=== PATIENT | male | born 1950 | race Caucasian/White ===

== ENCOUNTER 2016-08-17 02:48 | Inpatient (IN) | payer MEDICARE ==
[2016-08-17] MEDS ORDERED: NITROGLYCERIN SL TABS 0.4 MG TAB SUBLINGUAL STA ×3 (02:57)
[2016-08-17] MEDS ORDERED: ASPIRIN 81 MG CHEW PO STA (02:57)
--- NOTE | 2016-08-17 03:01 | ED ---
General Adult HPI - General Chief complaint: Chest Pain Stated complaint: chest pain Time Seen by Provider: 08/17/16 02:52 Source: patient, RN notes reviewed Mode of arrival: ambulatory Limitations: no limitations - History of Present Illness Initial comments: Patient is a pleasant 65-year-old male presenting to the emergency department complaining of chest discomfort. Discomfort feels like an ache. Discomfort is somewhat severe. Discomfort started a couple hours ago and has been steady. Discomfort is in the chest without radiation. There is some increase of symptoms with deep breaths however denies dyspnea. No nausea or diaphoresis. No history of similar symptoms previously. No leg pain or leg swelling. Patient did have hip replacement done 3 weeks ago. - Related Data Allergies Allergy/AdvReac Type Severity Reaction Status Date / Time Sulfa (Sulfonamide Allergy Rash/Hives Verified 08/17/16 02:53 Antibiotics) nitroglycerin AdvReac Nausea Verified 08/17/16 03:48 Review of Systems ROS Statement: Those systems with pertinent positive or pertinent negative responses have been documented in the HPI. ROS Other: All systems not noted in ROS Statement are negative. Constitutional: Denies: fever Eyes: Denies: eye pain ENT: Denies: ear pain Respiratory: Denies: cough, dyspnea Cardiovascular: Reports: chest pain Endocrine: Reports: fatigue Gastrointestinal: Denies: abdominal pain Genitourinary: Denies: dysuria Musculoskeletal: Denies: back pain Skin: Denies: rash Neurological: Denies: weakness Past Medical History Past Medical History: No Reported History History of Any Multi-Drug Resistant Organisms: None Reported Past Surgical History: Joint Replacement Additional Past Surgical History / Comment(s): left hip replacement july/2016. Past Psychological History: No Psychological Hx Reported Smoking Status: Never smoker Past Alcohol Use History: None Reported Past Drug Use History: None Reported General Exam Limitations: no limitations General appearance: alert, in no apparent distress Head exam: Present: atraumatic Eye exam: Present: normal appearance, PERRL ENT exam: Present: normal oropharynx Neck exam: Present: normal inspection Respiratory exam: Present: normal lung sounds bilaterally. Absent: chest wall tenderness Cardiovascular Exam: Present: regular rate, normal rhythm Expanded Peripheral pulses: 2+: Radial (R), Radial (L), Posterior Tibialis (R), Posterior Tibialis (L) GI/Abdominal exam: Present: soft. Absent: tenderness Extremities exam: Present: normal inspection. Absent: pedal edema, calf tenderness Neurological exam: Present: alert Psychiatric exam: Present: normal affect, normal mood Skin exam: Present: normal color Course Vital Signs 08/17/16 08/17/16 08/17/16 02:53 03:15 03:26 Temperature 98 F Pulse Rate 90 103 H 78 Respiratory 16 16 18 Rate Blood Pressure 140/70 96/53 78/57 O2 Sat by Pulse 99 100 99 Oximetry 08/17/16 08/17/16 08/17/16 03:28 03:36 03:47 Temperature Pulse Rate 80 74 78 Respiratory 16 16 16 Rate Blood Pressure 93/55 106/57 104/57 O2 Sat by Pulse 100 100 100 Oximetry 08/17/16 04:25 Temperature Pulse Rate 74 Respiratory 16 Rate Blood Pressure 105/60 O2 Sat by Pulse 100 Oximetry EKG Findings - EKG Comments: EKG Findings:: Normal sinus rhythm 94. Normal intervals. Normal axis. Normal QRS. Normal ST-T. Medical Decision Making - Medical Decision Making Patient reevaluated and resting comfortably in bed. Patient is updated regarding results and plan. Dr. Zhu has been paged for admission for Dr. Diaz. Patient previously has seen Dr. Pizarro will be placed on consult. IV heparin will be started. - Lab Data Result diagrams: 08/17/16 03:05 08/17/16 03:05 Lab Results 08/17/16 08/17/16 08/17/16 Range/Units 03:05 03:05 03:05 WBC 7.9 (3.8-10.6) k/uL RBC 4.04 L (4.30-5.90) m/uL Hgb 12.4 L (13.0-17.5) gm/dL Hct 38.8 L (39.0-53.0) % MCV 96.1 (80.0-100.0) fL MCH 30.6 (25.0-35.0) pg MCHC 31.9 (31.0-37.0) g/dL RDW 12.5 (11.5-15.5) % Plt Count 358 (150-450) k/uL Neutrophils % 75 % Lymphocytes % 15 % Monocytes % 8 % Eosinophils % 1 % Basophils % 0 % Neutrophils # 5.9 (1.3-7.7) k/uL Lymphocytes # 1.2 (1.0-4.8) k/uL Monocytes # 0.7 (0-1.0) k/uL Eosinophils # 0.1 (0-0.7) k/uL Basophils # 0.0 (0-0.2) k/uL PT (9.0-12.0) sec INR (<1.1) APTT (22.0-30.0) sec D-Dimer (<0.60) mg/L FEU Sodium 139 (137-145) mmol/L Potassium 4.3 (3.5-5.1) mmol/L Chloride 107 (98-107) mmol/L Carbon Dioxide 24 (22-30) mmol/L Anion Gap 8 mmol/L BUN 14 (9-20) mg/dL Creatinine 0.90 (0.66-1.25) mg/dL Est GFR (MDRD) Af Amer >60 (>60 ml/min/1.73 sqM) Est GFR (MDRD) Non-Af >60 (>60 ml/min/1.73 sqM) Glucose 102 H (74-99) mg/dL Calcium 9.1 (8.4-10.2) mg/dL Magnesium 2.1 (1.6-2.3) mg/dL Total Bilirubin 0.8 (0.2-1.3) mg/dL AST 26 (17-59) U/L ALT 34 (21-72) U/L Alkaline Phosphatase 89 (38-126) U/L Total Creatine Kinase 84 (55-170) U/L CK-MB (CK-2) 0.5 (0.0-2.4) ng/mL CK-MB (CK-2) Rel Index 0.6 Troponin I 0.021 (0.000-0.034) ng/mL Total Protein 6.8 (6.3-8.2) g/dL Albumin 3.8 (3.5-5.0) g/dL 08/17/16 Range/Units 03:05 WBC (3.8-10.6) k/uL RBC (4.30-5.90) m/uL Hgb (13.0-17.5) gm/dL Hct (39.0-53.0) % MCV (80.0-100.0) fL MCH (25.0-35.0) pg MCHC (31.0-37.0) g/dL RDW (11.5-15.5) % Plt Count (150-450) k/uL Neutrophils % % Lymphocytes % % Monocytes % % Eosinophils % % Basophils % % Neutrophils # (1.3-7.7) k/uL Lymphocytes # (1.0-4.8) k/uL Monocytes # (0-1.0) k/uL Eosinophils # (0-0.7) k/uL Basophils # (0-0.2) k/uL PT 10.5 (9.0-12.0) sec INR 1.0 (<1.1) APTT 26.4 (22.0-30.0) sec D-Dimer 11.00 H (<0.60) mg/L FEU Sodium (137-145) mmol/L Potassium (3.5-5.1) mmol/L Chloride (98-107) mmol/L Carbon Dioxide (22-30) mmol/L Anion Gap mmol/L BUN (9-20) mg/dL Creatinine (0.66-1.25) mg/dL Est GFR (MDRD) Af Amer (>60 ml/min/1.73 sqM) Est GFR (MDRD) Non-Af (>60 ml/min/1.73 sqM) Glucose (74-99) mg/dL Calcium (8.4-10.2) mg/dL Magnesium (1.6-2.3) mg/dL Total Bilirubin (0.2-1.3) mg/dL AST (17-59) U/L ALT (21-72) U/L Alkaline Phosphatase (38-126) U/L Total Creatine Kinase (55-170) U/L CK-MB (CK-2) (0.0-2.4) ng/mL CK-MB (CK-2) Rel Index Troponin I (0.000-0.034) ng/mL Total Protein (6.3-8.2) g/dL Albumin (3.5-5.0) g/dL - Radiology Data Radiology results: image reviewed (Chest x-ray shows a referral left airspace disease. Computed tomography scan of the chest positive for bilateral pulmonary embolism. Possible pulmonary infarct versus pneumonia.) Critical Care Time Critical Care Time: Yes Total Critical Care Time: 33 Disposition Clinical Impression: Pulmonary embolism Disposition: ADMITTED IP TO THIS HOSP Condition: Serious Referrals: Ronaldo Diaz MD [Primary Care Provider] - 1-2 days Decision Time: 04:33
[2016-08-17 03:17] LABS: Basophils % (A) 0 %; CH 30.8; CHCM 32.2; Eosinophils # (A) 0.1 k/uL (0-0.7); Eosinophils % (A) 1 %; HCT 38.8 % (39.0-53.0); HDW 2.41; HGB 12.4 gm/dL (13.0-17.5); Luc # (Auto) 0.12; Luc % (Auto) 2; Lymphocytes # (A) 1.2 k/uL (1.0-4.8); Lymphocytes % (A) 15 %; MCH 30.6 pg (25.0-35.0); MCHC 31.9 g/dL (31.0-37.0); MCV 96.1 fL (80.0-100.0); Mean Platelet Volume 7.2; Monocytes # (A) 0.7 k/uL (0-1.0); Monocytes % (A) 8 %; Neutrophils # (A) 5.9 k/uL (1.3-7.7); Neutrophils % (A) 75 %; RBC 4.04 m/uL (4.30-5.90); RDW 12.5 % (11.5-15.5); WBC 7.9 k/uL (3.8-10.6); WBC (Perox) 7.85
[2016-08-17 03:27] LABS: ALT 34 U/L (21-72); AST 26 U/L (17-59); Alkaline Phosphatase 89 U/L (38-126); Anion Gap 8 mmol/L; Blood Urea Nitrogen 14 mg/dL (9-20); Calcium 9.1 mg/dL (8.4-10.2); Carbon Dioxide 24 mmol/L (22-30); Chloride 107 mmol/L (98-107); Glucose 102 mg/dL (74-99); Magnesium 2.1 mg/dL (1.6-2.3); Non-African American GFR(MDRD) >60 (>60 ml/min/1.73 sqM); Potassium 4.3 mmol/L (3.5-5.1); Sodium 139 mmol/L (137-145); Total Bilirubin 0.8 mg/dL (0.2-1.3); Total Protein 6.8 g/dL (6.3-8.2)
[2016-08-17] MEDS ORDERED: SODIUM CHLORIDE 0.9% 500 ML IV ONE (03:27)
[2016-08-17 03:37] LABS: Partial Thromboplastin Time 26.4 sec (22.0-30.0); Prothrombin Time 10.5 sec (9.0-12.0)
[2016-08-17 03:52] LABS: Creatine Kinase MB 0.5 ng/mL (0.0-2.4); Troponin I 0.021 ng/mL (0.000-0.034)
[2016-08-17] MEDS ORDERED: RX INFO: IV CONTRAST WAS GIVEN 1 EACH MISC MISCELLANE PRN (03:54)
[2016-08-17] MEDS ORDERED: HEPARIN SODIUM,PORCINE 10,000 UNIT/ML 1 ML VIAL IV ONE (04:27)
[2016-08-17] MEDS ORDERED: HEPARIN SODIUM,PORCINE 5,000 UNIT/ML 1 ML VIAL IV PRN (04:27)
--- NOTE | 2016-08-17 04:30 | XR ---
EXAM: XR Chest, 2 Views CLINICAL HISTORY: Reason: Chest Pain TECHNIQUE: Frontal and lateral views of the chest. COMPARISON: No relevant prior studies available. FINDINGS: Please see impression. IMPRESSION: 1. Heterogeneous airspace disease at the peripheral aspect of the left lower lobe. Consider pneumonia in the right clinical setting. 2. No other consolidation, pleural effusion or pneumothorax. 3. No hilar or cardiomediastinal enlargement. Trachea is normal. [employer] 08/17/16 04:26 Call Doctor Regarding Above results, called Dr. Mcdonald on 08/17 04:25 (-04:00)
[2016-08-17] MEDS ORDERED: MORPHINE SULFATE 4 MG/ML SYRINGE IV PRN (04:33)
[2016-08-17] MEDS: HEPARIN SODIUM,PORCINE/D5W PMX 25,000 UNIT in DEXTROSE/WATER 1 500ML.BAG IV SCH (04:33)
[2016-08-17] MEDS ORDERED: NALOXONE 0.4 MG/ML 1 ML VIAL IV PRN (04:33)
[2016-08-17 05:30] VITALS: BMI 24.3
--- NOTE | 2016-08-17 05:49 | CT ---
EXAM: CT Chest With Intravenous Contrast CLINICAL HISTORY: Reason: pe protocol TECHNIQUE: Axial computed tomography images of the chest with intravenous contrast during the arterial phase of enhancement. Maximum intensity projection coronal and sagittal reformats submitted for review. CTDI is 63.60 mGy and DLP is 292.10 mGy-cm. This CT exam was performed using one or more of the following dose reduction techniques: automated exposure control, adjustment of the mA and/or kV according to patient size, and/or use of iterative reconstruction technique. COMPARISON: No relevant prior studies available. FINDINGS: Pulmonary arteries: Positive for PE involving segmental and subsegmental branches to the upper lobes and both lower lobes. No saddle embolus. No aortic aneurysm or dissection. Aorta: No acute findings. No thoracic aortic aneurysm. Lungs: Airspace disease of the left greater than right lower lobes concerning for pulmonary infarct. No mass. Pleural space: Unremarkable. No significant effusion. No pneumothorax. Heart: Unremarkable. No cardiomegaly. No significant pericardial effusion. No evidence of RV dysfunction. Bones/joints: No acute fracture. No dislocation. Soft tissues: Unremarkable. Lymph nodes: Unremarkable. No enlarged lymph nodes. IMPRESSION: Bilateral multilobar segmental and substernal PE with airspace disease potentially representing pulmonary infarcts at the lower lobes. [employer] 08/17/16 05:47 Call Doctor Regarding Above results, called Dr. Mcdonald on 08/17 04:25 (-04:00)
[2016-08-17] MEDS: FAMOTIDINE 20 MG TAB PO SCH ×2 (09:15→19:56)
[2016-08-17] MEDS: HYDROcodone/APAP 7.5-325MG 1 EACH TAB PO PRN ×2 (12:42→20:10)
--- NOTE | 2016-08-17 12:43 | P.CNPUL ---
History of Present Illness Consult date: 08/17/16 Reason for consult: pulmonary embolism Chief complaint: Shortness of breath History of present illness: This is a 65-year-old male patient, healthy, with essentially a negative past medical history with the exception of chronic arthritis, who came into the hospital because of worsening shortness of breath of 2 days' duration. Earlier this morning he started also having some pain, pleuritic in nature more so in the left lung base. No cough. No sputum production. No hemoptysis. Noted the patient had undergone a left hip replacement at [facility] and medical and his postoperative course has been relatively uneventful. The patient was given aspirin perioperatively and he was ultimately discharged home. He tells me that he was quite active and ambulatory postop. The patient has some increased swelling along the left upper hip area, Yet he denies having any calf pain or swelling. He had a CT angios the chest in the emergency department that showed pulmonary embolism involving the segmental and subsegmental branches of the upper lobes and lower lobes more so on the left lung base. There is also air space disease in the lung bases more so on the left compared to the right. Based on this, the patient was started on IV heparin. He is currently on 2 L of oxygen nasal cannula and his pulse ox is above 90%. No tachycardia. No hypotension. Urine output is adequate. No bleeding complications while on heparin. No drop in his hemoglobin. He has been stable and his pain is subsiding. No dyspnea at rest. This is the patient 's first event and he denies having any previous history of DVT or pulmonary embolism and this does not run in his family. No 69 malignancy. No history of any hypercoagulable states. No history of any trauma. Surgical wound site over the left hip area is dry clean and intact. Review of Systems All systems: negative Constitutional: Denies chills, Denies fever Eyes: denies blurred vision, denies pain Ears, nose, mouth and throat: Denies headache, Denies sore throat Cardiovascular: Denies chest pain, Denies shortness of breath Respiratory: Denies cough Gastrointestinal: Denies abdominal pain, Denies diarrhea, Denies nausea, Denies vomiting Musculoskeletal: Denies myalgias Integumentary: Denies pruritus, Denies rash Neurological: Denies numbness, Denies weakness Psychiatric: Denies anxiety, Denies depression Endocrine: Denies fatigue, Denies weight change Past Medical History Past Medical History: No Reported History History of Any Multi-Drug Resistant Organisms: None Reported Past Surgical History: Joint Replacement Additional Past Surgical History / Comment(s): left hip replacement july/2016, right knee surgery for a torn ligament in 1970 Past Psychological History: No Psychological Hx Reported Smoking Status: Never smoker Past Alcohol Use History: None Reported Past Drug Use History: None Reported - Past Family History Mother Family Medical History: Cancer Medications and Allergies Home Medications Medication Instructions Recorded Confirmed Type Aspirin 325 mg PO BID 08/17/16 08/17/16 History Allergies Allergy/AdvReac Type Severity Reaction Status Date / Time Sulfa (Sulfonamide Allergy Rash/Hives Verified 08/17/16 08:32 Antibiotics) nitroglycerin AdvReac Nausea Verified 08/17/16 08:32 Physical Exam Vitals: Vital Signs Temp Pulse Pulse Resp BP BP BP 08/17/16 12:00 99.2 F 79 16 115/70 08/17/16 09:08 99.2 F 79 16 112/65 08/17/16 05:44 98.2 F 73 18 113/65 08/17/16 05:01 98.2 F 73 18 113/65 08/17/16 04:51 75 16 104/66 08/17/16 04:25 74 16 105/60 08/17/16 03:47 78 16 104/57 08/17/16 03:36 74 16 106/57 08/17/16 03:28 80 16 93/55 08/17/16 03:26 78 18 78/57 08/17/16 03:15 103 H 16 96/53 08/17/16 02:53 98 F 90 16 140/70 Pulse Ox 08/17/16 12:00 96 08/17/16 09:08 96 08/17/16 05:44 98 08/17/16 05:01 98 08/17/16 04:51 100 08/17/16 04:25 100 08/17/16 03:47 100 08/17/16 03:36 100 08/17/16 03:28 100 08/17/16 03:26 99 08/17/16 03:15 100 08/17/16 02:53 99 Intake and Output 08/16/16 08/17/16 08/17/16 22:59 06:59 14:59 Intake Total 624 Output Total 925 Balance -301 Intake: IV 384 Heparin Sodium,Porcine/ 224 D5w Pmx 25,000 unit In Dextrose/Water 1 500ml. bag @ 18 UNITS/KG/HR 27. 75 mls/hr IV .Q18H2M [facility] Rx#:[id number] Sodium Chloride 0.9% 1, 160 000 ml @ 20 mls/hr IV . Q24H [facility] Rx#:[id number] Oral 240 Output: Urine 925 Other: Voiding Method Urinal Urinal Weight 77.111 kg Results - Laboratory Findings CBC and BMP: 08/17/16 03:05 08/17/16 03:05 PT/INR, D-dimer PT 10.5 sec (9.0-12.0) 08/17/16 03:05 INR 1.0 (<1.1) 08/17/16 03:05 D-Dimer 11.00 mg/L FEU (<0.60) H 08/17/16 03:05 Abnormal lab findings: Abnormal Labs 08/17/16 08/17/16 08/17/16 03:05 03:05 03:05 RBC 4.04 L Hgb 12.4 L Hct 38.8 L APTT D-Dimer 11.00 H Glucose 102 H 08/17/16 10:30 RBC Hgb Hct APTT 66.8 H D-Dimer Glucose - Diagnostic Findings CT scan - chest: image reviewed Assessment and Plan Plan: Assessment 1 acute provoked bilateral pulmonary embolism involving the segmental and subsegmental branches of the lower lobes and upper lobes more so on the left lower lobe pulmonary artery branches. This is a provoked event under the patient undergone a left hip surgery approximately 3 weeks ago. Doubt any other risk factors. The patient is hemodynamic is stable on IV heparin. 2 suspected left lower extremity DVT, awaiting Dopplers 3 left hip replacement, postop 4 shortness of breath and pleuritic chest pain secondary to above Plan Continued IV heparin. We will obtain Doppler of the lower extremity looking for any DVT. Obtain an echocardiogram to assess the patient's pulmonary artery pressures and LV function. The patient is hemodynamically stable. He is actually taking well. We'll provide an incentive spirometer. There is some atelectatic and decided changes in the lung bases bilaterally which is probably related to pulmonary embolism and this is not suggestive of any pneumonia. He' ll be given an incentive spirometer. He'll be given [place] for pain control 7.5/ 325 every 6-8 hours and the IV morphine will be discontinued. He will be ultimately discharged home on Xarelto. The insurance authorization will be obtained and if approved the patient will be started on Xarelto starter pack as of tomorrow. Early mobility. Diagnosis was discussed. We'll continue to follow.
--- NOTE | 2016-08-17 14:38 | US ---
EXAMINATION TYPE: US venous doppler duplex LE BI DATE OF EXAM: 08/17/2016 1:46 PM COMPARISON: NONE CLINICAL HISTORY: rule out DVT, pulmonary embolism. SIDE PERFORMED: Bilateral TECHNIQUE: The lower extremity deep venous system is examined utilizing real time linear array sonog anna with graded compression, doppler sonography and color-flow sonography. VESSELS IMAGED: External Iliac Vein (EIV) Common Femoral Vein Deep Femoral Vein Greater Saphenous Vein * Femoral Vein Popliteal Vein Small Saphenous Vein * Proximal Calf Veins (* superficial vessels) Grayscale, color doppler, spectral doppler imaging performed of the deep veins of the lower extremiti es. There is normal flow, compressibility, vascular waveforms bilaterally. Right Leg: Negative for DVT Left Leg: Negative for DVT IMPRESSION: No evidence for DVT.
--- NOTE | 2016-08-17 14:45 | P.HPIM ---
History of Present Illness H&P Date: 08/17/16 Chief Complaint: Bilateral PE This is a 65-year-old male one of Dr. Diaz with a previous medical history significant for osteoarthritis for which she underwent a left total hip arthroplasty that was done via the anterior approach by Dr. Marc Clarke at [facility] and that was in 07/28/2016, that went an eventful, patient was doing fine up until about a week ago when he developed to have a significant exhaustion and fatigue over the last few days, yesterday he was sitting up in chair and suddenly developed to have left-sided chest pain associated with increased shortness breath patient ended up coming to the ER at [facility] had a computed tomography scan of the chest that showed bilateral subsegmental pulmonary emboli was started on heparin drip and he was admitted to the hospital, pulmonary consultation was obtained from Dr. Thkakar. Review of Systems Constitutional: Reports fatigue, Denies anorexia, Denies chronic headaches, Denies lethargy, Denies malaise, Denies weight gain, Denies weight loss Eyes: denies blurred vision, denies bulging eye, denies decreased vision, denies diplopia Ears: deny: decreased hearing Ears, nose, mouth and throat: Denies dysphagia, Denies neck lump, Denies sore throat, Denies vertigo Cardiovascular: Reports chest pain, Reports decreased exercise tolerance, Reports dyspnea on exertion, Reports shortness of breath, Denies irregular heart beat, Denies rapid heart beat, Denies syncope Respiratory: Reports dyspnea, Reports pleurisy, Denies congestion, Denies cough with sputum, Denies home oxygen, Denies sleep apnea, Denies snoring, Denies wheezing Gastrointestinal: Denies abdominal pain, Denies bloating, Denies BRBPR, Denies early satiety, Denies heartburn, Denies melena, Denies nausea, Denies vomiting Genitourinary: Denies discharge, Denies dysuria, Denies nocturia, Denies polyuria Musculoskeletal: Denies myalgias Musculoskeletal: left: hip stiffness, absent: ankle pain, ankle stiffness, ankle swelling, elbow pain, elbow stiffness, elbow swelling, foot pain, foot stiffness, foot swelling, hand pain, hand stiffness, hand swelling, hip swelling , knee pain, knee stiffness, knee swelling, shoulder pain, shoulder stiffness, shoulder swelling, wrist pain, wrist stiffness, wrist swelling Integumentary: Denies pruritus, Denies rash Neurological: Denies numbness, Denies weakness Psychiatric: Denies anxiety, Denies depression Endocrine: Denies fatigue, Denies weight change Past Medical History Past Medical History: Osteoarthritis (OA) History of Any Multi-Drug Resistant Organisms: None Reported Past Surgical History: Adenoidectomy, Joint Replacement, Orthopedic Surgery ( Right arthroscopic knee with torn cartilage.), Tonsillectomy Additional Past Surgical History / Comment(s): left hip replacement july/2016, last colonoscopy was 2014 normal Past Psychological History: No Psychological Hx Reported Smoking Status: Never smoker Past Alcohol Use History: Occasional Past Drug Use History: None Reported - Past Family History Mother Family Medical History: Cancer (Mother at age of 82 from cerebral hemorrhage also a survivor of colon cancer) Father Family Medical History: Neurologic Disorder (Father at the age of 92 from intracranial hemorrhage) Brother(s) Family Medical History: No Reported History (Patient had 2 brothers one this is from correction of the other one is living and well) Daughter(s) Family Medical History: No Reported History (Patient has one daughter no major medical problems) Son(s) Family Medical History: No Reported History (Patient has a son with no major medical problems) Medications and Allergies Home Medications Medication Instructions Recorded Confirmed Type Aspirin 325 mg PO BID 08/17/16 08/17/16 History Allergies Allergy/AdvReac Type Severity Reaction Status Date / Time Sulfa (Sulfonamide Allergy Rash/Hives Verified 08/17/16 08:32 Antibiotics) nitroglycerin AdvReac Nausea Verified 08/17/16 08:32 Physical Exam Vitals: Vital Signs Temp Pulse Pulse Resp BP BP BP 08/17/16 09:08 99.2 F 79 16 112/65 08/17/16 05:44 98.2 F 73 18 113/65 08/17/16 05:01 98.2 F 73 18 113/65 08/17/16 04:51 75 16 104/66 08/17/16 04:25 74 16 105/60 08/17/16 03:47 78 16 104/57 08/17/16 03:36 74 16 106/57 08/17/16 03:28 80 16 93/55 08/17/16 03:26 78 18 78/57 08/17/16 03:15 103 H 16 96/53 08/17/16 02:53 98 F 90 16 140/70 Pulse Ox 08/17/16 09:08 96 08/17/16 05:44 98 08/17/16 05:01 98 08/17/16 04:51 100 08/17/16 04:25 100 08/17/16 03:47 100 08/17/16 03:36 100 08/17/16 03:28 100 08/17/16 03:26 99 08/17/16 03:15 100 08/17/16 02:53 99 Intake and Output 08/16/16 08/17/16 08/17/16 22:59 06:59 14:59 Intake Total 624 Output Total 925 Balance -301 Intake: IV 384 Heparin Sodium,Porcine/ 224 D5w Pmx 25,000 unit In Dextrose/Water 1 500ml. bag @ 18 UNITS/KG/HR 27. 75 mls/hr IV .Q18H2M [facility] Rx#:[id number] Sodium Chloride 0.9% 1, 160 000 ml @ 20 mls/hr IV . Q24H [facility] Rx#:[id number] Oral 240 Output: Urine 925 Other: Voiding Method Urinal Weight 77.111 kg - Constitutional General appearance: mild distress - EENT Eyes: anicteric sclerae, EOMI, PERRLA, no ptosis, no scleral icterus, normal appearance ENT: hearing grossly normal, NA/AT, normal oropharynx, no thrush Ears: bilateral: normal - Neck Neck: no lymphadenopathy, normal ROM, no rigidity, no stridor, no thyromegaly Carotids: bilateral: upstroke normal Thyroid: bilateral: normal size - Respiratory Respiratory: bilateral: diminished, negative: dullness, rales, rhonchi, wheezing , prolonged expiration - Cardiovascular Rhythm: regular Heart sounds: normal: S1, S2 Abnormal Heart Sounds: no systolic murmur, no S3 Gallop, no S4 Gallop, no click - Gastrointestinal General gastrointestinal: normal bowel sounds, soft, no splenomegaly, no tenderness, no umbilical hernia - Integumentary Integumentary: normal, normal turgor - Neurologic Neurologic: CNII-XII intact - Musculoskeletal Musculoskeletal: strength equal bilaterally - Psychiatric Psychiatric: A&O x's 3, appropriate affect, intact judgment & insight Results CBC & Chem 7: 06/26/17 03:05 08/17/16 03:05 Labs: Abnormal Lab Results - Last 24 Hours (Table) 08/17/16 08/17/16 08/17/16 Range/Units 03:05 03:05 03:05 RBC 4.04 L (4.30-5.90) m/uL Hgb 12.4 L (13.0-17.5) gm/dL Hct 38.8 L (39.0-53.0) % D-Dimer 11.00 H (<0.60) mg/L FEU Glucose 102 H (74-99) mg/dL Thrombosis Risk Factor Assmnt - DVT/VTE Prophylaxis DVT/VTE Prophylaxis: Pharmacologic Prophylaxis ordered - Choose All That Apply Each Risk Factor Represents 2 Points: Age 61-74 years Each Risk Factor Represents 5 Points: Hip, pelvis, or leg fracture (< 1 month) Thrombosis Risk Factor Assessment Total Risk Factor Score: 7 Thrombosis Risk Factor Assessment Level: High Risk Assessment and Plan Plan: Assessment and plan: 1. Bilateral subsegmental pulmonary emboli provoked by recent left total hip arthroplasty via anterior approach. Continue heparin drip for the next 24 hours , transition the patient to Xarelto 50 mg orally twice every day for the next 21 days then 20 mg orally once every day for the next 6 months, patient will have a venous Doppler of both lower extremity for evaluation of DVT, patient was seen and evaluated by pulmonary medicine, incentive spirometer at the bedside. 2. Osteoarthritis status post left total hip arthroplasty. Continue hydrocodone 5/325 mg 1 tablet every 6 hours as needed. 3. DVT prophylaxis. Currently on heparin drip. 4. Increase activity. 5. Home within the next 24-48 hours.
[2016-08-17] MEDS: SODIUM CHLORIDE 0.9% 1,000 ML IV SCH (15:28)
[2016-08-18] MEDS: HEPARIN SODIUM,PORCINE/D5W PMX 25,000 UNIT in DEXTROSE/WATER 1 500ML.BAG IV SCH (00:37)
[2016-08-18] MEDS: HYDROcodone/APAP 7.5-325MG 1 EACH TAB PO PRN (01:58)
[2016-08-18] MEDS: SODIUM CHLORIDE 0.9% 1,000 ML IV SCH (06:12)
[2016-08-18 06:32] LABS: Basophils % (A) 0 %; CH 30.4; CHCM 31.6; Eosinophils % (A) 1 %; HCT 33.2 % (39.0-53.0); HDW 2.46; HGB 10.1 gm/dL (13.0-17.5); Hypochromasia Slight; Luc % (Auto) 2; Lymphocytes # (A) 1.1 k/uL (1.0-4.8); Lymphocytes % (A) 18 %; MCH 29.5 pg (25.0-35.0); MCHC 30.5 g/dL (31.0-37.0); MCV 96.6 fL (80.0-100.0); Mean Platelet Volume 6.7; Monocytes # (A) 0.6 k/uL (0-1.0); Monocytes % (A) 10 %; Neutrophils # (A) 4.2 k/uL (1.3-7.7); Neutrophils % (A) 69 %; RBC 3.43 m/uL (4.30-5.90); RDW 12.4 % (11.5-15.5); WBC 6.1 k/uL (3.8-10.6); WBC (Perox) 6.86
[2016-08-18 07:18] LABS: ALT 30 U/L (21-72); AST 22 U/L (17-59); Alkaline Phosphatase 67 U/L (38-126); Anion Gap 7 mmol/L; Blood Urea Nitrogen 9 mg/dL (9-20); Calcium 8.6 mg/dL (8.4-10.2); Carbon Dioxide 27 mmol/L (22-30); Chloride 104 mmol/L (98-107); Glucose 101 mg/dL (74-99); Non-African American GFR(MDRD) >60 (>60 ml/min/1.73 sqM); Potassium 4.6 mmol/L (3.5-5.1); Sodium 138 mmol/L (137-145); Total Bilirubin 0.5 mg/dL (0.2-1.3); Total Protein 5.5 g/dL (6.3-8.2)
[2016-08-18] MEDS: FAMOTIDINE 20 MG TAB PO SCH (08:13)
[2016-08-18] MEDS ORDERED: RIVAROXABAN 15 MG TAB PO SCH (09:00)
[2016-08-18 09:51] VITALS: RESP 18
--- NOTE | 2016-08-18 09:52 | ECHOF ---
Referral Reason:PE MEASUREMENTS -------- HEIGHT: 182.9 cm WEIGHT: 78.0 kg BP: RVIDd: 3.9 cm (< 3.3) IVSd: 0.7 cm (0.6 - 1.1) LVIDd: 4.6 cm (3.9 - 5.3) LVPWd: 0.9 cm (0.6 - 1.1) IVSs: 1.4 cm LVIDs: 2.0 cm LVPWs: 1.7 cm Ao Diam: 3.4 cm (2.0 - 3.7) AV Cusp: 2.3 cm (1.5 - 2.6) LA Diam: 3.0 cm (2.7 - 3.8) MV EXCURSION: 22.560 mm (> 18.000) MV EF SLOPE: 91 mm/s (70 - 150) EPSS: 0.2 cm MV E Yamil: 0.86 m/s MV DecT: 256 ms MV A Yamil: 0.77 m/s MV E/A Ratio: 1.12 RAP: 15.00 mmHg RVSP: 24.10 mmHg FINDINGS -------- Sinus rhythm. This was a technically good study. Left ventricular wall thickness is normal. Overall left ventricular systolic function is normal with, an EF between 55 - 60 %. The right ventricle is mild to moderately enlarged. The left atrium is normal in size. The right atrium is normal in size. The aortic valve is trileaflet, and appears structurally normal. No aortic stenosis or regurgitation. Mild mitral regurgitation is present. Mild tricuspid regurgitation present. The right ventricular systolic pressure, as measured by Doppler, is 24.10mmHg. Pulmonic valve appears structurally normal. The aortic root size is normal. The inferior vena cava is mildly dilated. The pericardium is normal. CONCLUSIONS -------- 1. Sinus rhythm. 2. Mild tricuspid regurgitation present. 3. The right ventricular systolic pressure, as measured by Doppler, is 24.10mmHg. 4. Pulmonic valve appears structurally normal. 5. The aortic root size is normal. 6. The inferior vena cava is mildly dilated. 7. The pericardium is normal. 8. This was a technically good study. 9. Left ventricular wall thickness is normal. 10. Overall left ventricular systolic function is normal with, an EF between 55 - 60 %. 11. The right ventricle is mild to moderately enlarged. 12. The left atrium is normal in size. 13. The right atrium is normal in size. 14. The aortic valve is trileaflet, and appears structurally normal. No aortic stenosis or regurgitation. 15. Mild mitral regurgitation is present. NANOELECTRONICS ENGINEER: Ruthann Rodriguez RDCS
--- NOTE | 2016-08-18 11:22 | P.PN ---
Subjective This is a 65-year-old male patient, healthy, with essentially a negative past medical history with the exception of chronic arthritis, who came into the hospital because of worsening shortness of breath of 2 days' duration. Earlier this morning he started also having some pain, pleuritic in nature more so in the left lung base. No cough. No sputum production. No hemoptysis. Noted the patient had undergone a left hip replacement at [facility] and medical and his postoperative course has been relatively uneventful. The patient was given aspirin perioperatively and he was ultimately discharged home. He tells me that he was quite active and ambulatory postop. The patient has some increased swelling along the left upper hip area, Yet he denies having any calf pain or swelling. He had a CT angios the chest in the emergency department that showed pulmonary embolism involving the segmental and subsegmental branches of the upper lobes and lower lobes more so on the left lung base. There is also air space disease in the lung bases more so on the left compared to the right. Based on this, the patient was started on IV heparin. He is currently on 2 L of oxygen nasal cannula and his pulse ox is above 90%. No tachycardia. No hypotension. Urine output is adequate. No bleeding complications while on heparin. No drop in his hemoglobin. He has been stable and his pain is subsiding. No dyspnea at rest. This is the patient 's first event and he denies having any previous history of DVT or pulmonary embolism and this does not run in his family. No 69 malignancy. No history of any hypercoagulable states. No history of any trauma. Surgical wound site over the left hip area is dry clean and intact. On today's evaluation of 08/18/2016 the patient is looking well. The patient has no specific complaints. No shortness of breath. No chest pain. He is on IV heparin. He'll be switched to Xarelto. Doppler of the lower extremities has been negative. The echocardiogram showed a normal ejection fraction of 55- 60%. No evidence of any significant pulmonary hypertension. Mild mitral regurgitation was seen. Objective - Vital Signs Vital signs: Vital Signs Temp 97.6 F 08/18/16 08:00 Pulse 82 08/18/16 08:00 Resp 18 08/18/16 08:00 BP 111/57 08/18/16 08:00 Pulse Ox 97 08/18/16 08:00 Intake & Output 08/17/16 08/18/16 08/18/16 18:59 06:59 18:59 Intake Total 1308 346.5 500 Output Total 1225 475 Balance 83 -128.5 500 Weight 77.111 kg 77.8 kg Intake: IV 768 346.5 Heparin Sodium,Porcine/ 448 166.5 D5w Pmx 25,000 unit In Dextrose/Water 1 500ml. bag @ 18 UNITS/KG/HR 27. 75 mls/hr IV .Q18H2M GELY Rx#:[id number] Sodium Chloride 0.9% 1, 320 180 000 ml @ 20 mls/hr IV . Q24H GELY Rx#:[id number] Intake, IV Titration 500 Amount Heparin Sodium,Porcine/ 500 D5w Pmx 25,000 unit In Dextrose/Water 1 500ml. bag @ 18 UNITS/KG/HR 27. 75 mls/hr IV .Q18H2M GELY Rx#:[id number] Oral 540 Output: Urine 1225 475 Other: Voiding Method Urinal Urinal # Voids 1 - Exam The patient appeared well nourished and normally developed. Vital signs as documented. Head exam is unremarkable. No scleral icterus or corneal arcus noted. Neck is without jugular venous distension, thyromegaly, or carotid bruits. Carotid upstrokes are brisk bilaterally. Lungs are clear to auscultation and percussion. Cardiac exam reveals the PMI to be normally sized and situated. Rhythm is regular. First and second heart sounds normal. No murmurs, rubs or gallops. Abdominal exam reveals normal bowel sounds, no masses , no organomegaly and no aortic enlargement. Extremities are nonedematous and both femoral and pedal pulses are normal. The surgical wound site over the left hip areas dry clean and intact. - Labs CBC & Chem 7: 08/18/16 05:37 08/18/16 05:37 Labs: Abnormal Lab Results - Last 24 Hours (Table) 08/18/16 08/18/16 08/18/16 Range/Units 05:37 05:37 05:37 RBC 3.43 L (4.30-5.90) m/uL Hgb 10.1 L (13.0-17.5) gm/dL Hct 33.2 L (39.0-53.0) % MCHC 30.5 L (31.0-37.0) g/dL APTT 84.4 H (22.0-30.0) sec Glucose 101 H (74-99) mg/dL Total Protein 5.5 L (6.3-8.2) g/dL Albumin 2.9 L (3.5-5.0) g/dL Assessment and Plan Plan: Assessment 1 acute provoked bilateral pulmonary embolism involving the segmental and subsegmental branches of the lower lobes and upper lobes more so on the left lower lobe pulmonary artery branches. This is a provoked event under the patient undergone a left hip surgery approximately 3 weeks ago. Doubt any other risk factors. The patient is hemodynamic is stable on IV heparin. 2 suspected left lower extremity DVT, awaiting Dopplers 3 left hip replacement, postop 4 shortness of breath and pleuritic chest pain secondary to above Plan We'll start the patient is Xarelto 50 mg by mouth twice a day for 3 weeks and then switch him to 20 mg by mouth on a daily basis. The patient can be discharged from my standpoint to continue outpatient evaluation for a total of 3 -6 months. Increased level of activity as tolerated. Pain control but no cord regarding the surgical pain over the left hip.
[2016-08-18 12:03] VITALS: BP 119/70; PULSE 74; TEMP 98
--- NOTE | 2016-08-18 12:43 | P.DS ---
Providers Date of admission: 08/17/16 04:33 Expected date of discharge: 08/18/16 Attending physician: Fritz Zhu Consults: 08/17/16 04:34 Consult Physician Urgent Consulting Provider: Gino Hernandez Consult Reason/Comments: Pulmonary embolism Do you want consulting provider notified?: Yes Primary care physician: Ronaldo Diaz [facility] Course: This is a 65-year-old male one of Dr. Diaz with a previous medical history significant for osteoarthritis for which she underwent a left total hip arthroplasty that was done via the anterior approach by Dr. Marc Clarke at [facility] and that was in 07/28/2016, that went an eventful, patient was doing fine up until about a week ago when he developed to have a significant exhaustion and fatigue over the last few days, yesterday he was sitting up in chair and suddenly developed to have left-sided chest pain associated with increased shortness breath patient ended up coming to the ER at [facility] had a computed tomography scan of the chest that showed bilateral subsegmental pulmonary emboli was started on heparin drip and he was admitted to the hospital, pulmonary consultation was obtained from Dr. Thakkar. 08/18: Patient has been started on Xarelto and heparin drip discontinued. Patient is anxious to be discharged home. Room air pulse ox is 96% with ambulation. Patient will be discharged home today in stable condition. Discharge diagnoses: 1. Bilateral subsegmental pulmonary emboli provoked by recent left total hip arthroplasty via anterior approach. dicine, incentive spirometer at the bedside. 2. Osteoarthritis status post left total hip arthroplasty. Discharge plan: Return home Impression and plan of care have been directed as dictated by the signing physician. Radha Sarmiento nurse practitioner acting as scribe for signing physician. Patient Condition at Discharge: Good Plan - Discharge Summary New Discharge Prescriptions: New Rivaroxaban [Xarelto] 15 mg PO BID-W/MEALS tab Discontinued Aspirin 325 mg PO BID Discharge Medication List Rivaroxaban [Xarelto] 15 mg PO BID-W/MEALS tab 08/18/16 [Rx] Follow up Appointment(s)/Referral(s): Ronaldo Diaz MD [Primary Care Provider] - 08/20/16 2:30 pm (Will be with NICOLASA Giles) Woody Thakkar MD [STAFF PHYSICIAN] - 08/26/16 1:15 pm Patient Instructions/Handouts: Pulmonary Embolism (DC) Activity/Diet/Wound Care/Special Instructions: *claims support specialist Rashel from [facility] at time of discharge* Discharge Disposition: HOME SELF-CARE
== END 2016-08-18 12:34 | disposition home or self-care (01) | DRG 176 ==
LOC: EC 02:48 → 6SEL 04:33
PROVIDERS: ADMIT Internal Medicine; ATTEND Internal Medicine
DX: I26.99 Other pulmonary embolism without acute cor pulmonale (principal); I34.0 Nonrheumatic mitral (valve) insufficiency; M19.90 Unspecified osteoarthritis, unspecified site; Z79.82 Long term (current) use of aspirin; Z96.642 Presence of left artificial hip joint; Z88.2 Allergy status to sulfonamides; Z88.8 Allergy status to other drugs, medicaments and biological substances
CPT/HCPCS: 36415; 71020; 71275; 80053; 82550; 82553; 83735; 84484; 85025; 85379; 85610; 85730; 93005; 93306; 93970; 96361; 96365; 96376; 99291

== ENCOUNTER → 2016-09-24 | Outpatient (CLI) | payer MEDICARE ==
--- NOTE | 2016-09-24 10:47 | US ---
EXAMINATION TYPE: US venous doppler duplex LE BI DATE OF EXAM: 09/24/2016 10:35 AM COMPARISON: 08/17/2016 CLINICAL HISTORY: R22.42 SWELLING LT LIMB,R22.41 SWELLING RT LIMB, R60.0. h/o bilateral PE's, promine nt left anterior flores vein noticed by patient SIDE PERFORMED: Bilateral TECHNIQUE: The lower extremity deep venous system is examined utilizing real time linear array sonog anna with graded compression, doppler sonography and color-flow sonography. VESSELS IMAGED: External Iliac Vein (EIV) Common Femoral Vein Deep Femoral Vein Greater Saphenous Vein * Femoral Vein Popliteal Vein Small Saphenous Vein * Proximal Calf Veins (* superficial vessels) Right Leg: Appears negative for DVT Left Leg: Appears negative for DVT Grayscale, color doppler, spectral doppler imaging performed of the deep veins of the lower extremiti es. There is normal flow, compressibility, vascular waveforms bilaterally. IMPRESSION: No evidence for deep venous thrombosis within either extremity, unchanged from the prior .
== END | disposition home or self-care (01) ==
LOC: RADUSWWP 10:02
PROVIDERS: ATTEND Internal Medicine Critical Care Medicine
DX: R22.43 Localized swelling, mass and lump, lower limb, bilateral (principal); Z88.2 Allergy status to sulfonamides
CPT/HCPCS: 93970

== ENCOUNTER 2016-10-30 19:10 | Observation (INO) | payer MEDICARE ==
[2016-10-30] MEDS ORDERED: ASPIRIN 81 MG PO STA (19:40)
--- NOTE | 2016-10-30 19:44 | ED ---
Chest Pain HPI - General Chief Complaint: Chest Pain Stated Complaint: Chest Pain Time Seen by Provider: 10/30/16 19:35 Source: patient Mode of arrival: ambulatory Limitations: no limitations - History of Present Illness Initial Comments: This 65-year-old white male presents with the complaint of some chest pain. He relates that it is on the left side now and it is nonradiating. It is described as a achy or pressure type sensation. He denies any shortness of breath. There is not a pleuritic component. He denies any previously known cardiac disease. He was just diagnosed with pulmonary embolism status post hip surgery approximately 2 months ago and is currently taking Xaralto. He did not miss any doses of this medication. He denies any calf pain or swelling. He states that this current chest pain is different than his previous pulmonary embolism chest pain that he also had shortness of breath previously and a pleuritic component. He denies ever having a stress test or heart catheterization. No other complaints or modifying factors. - Related Data Home Medications Medication Instructions Recorded Confirmed Rivaroxaban [Xarelto] 20 mg PO QAM 10/30/16 10/30/16 Allergies Allergy/AdvReac Type Severity Reaction Status Date / Time Sulfa (Sulfonamide Allergy Rash/Hives Verified 10/30/16 19:34 Antibiotics) nitroglycerin AdvReac Nausea Verified 10/30/16 19:34 Review of Systems ROS Statement: Those systems with pertinent positive or pertinent negative responses have been documented in the HPI. ROS Other: All systems not noted in ROS Statement are negative. Past Medical History Past Medical History: Osteoarthritis (OA), Pulmonary Embolus (PE) History of Any Multi-Drug Resistant Organisms: None Reported Past Surgical History: Adenoidectomy, Joint Replacement, Orthopedic Surgery, Tonsillectomy Additional Past Surgical History / Comment(s): left hip replacement july/2016, last colonoscopy was 2014 normal Past Psychological History: No Psychological Hx Reported Smoking Status: Never smoker Past Alcohol Use History: Occasional Past Drug Use History: None Reported - Past Family History Mother Family Medical History: Cancer (Mother at age of 82 from cerebral hemorrhage also a survivor of colon cancer) Father Family Medical History: Neurologic Disorder (Father at the age of 92 from intracranial hemorrhage) Brother(s) Family Medical History: No Reported History (Patient had 2 brothers one this is from correction of the other one is living and well) Daughter(s) Family Medical History: No Reported History (Patient has one daughter no major medical problems) Son(s) Family Medical History: No Reported History (Patient has a son with no major medical problems) General Exam - General Exam Comments Initial Comments: GENERAL: The patient is well nourished and well hydrated. VITAL SIGNS: Heart rate, blood pressure, respiratory rate reviewed as recorded in nurse's notes. EYES: Pupils are round and reactive. Extraocular movements are intact. No conjunctival / lid redness or swelling. ENT: No external evidence of injury, swelling, or ecchymosis. Airway is patent. Throat is clear. NECK: Nontender. No swelling or evidence of injury. No subcutaneous emphysema. Trachea is midline. No thyroid mass. HEART: Regular rate and rhythm. Good peripheral pulses. LUNGS/CHEST: Breath sounds clear and equal bilaterally. No rales, rhonchi, or wheezes. No ecchymosis, subcutaneous emphysema, or tenderness. ABDOMEN: Abdomen soft without tenderness. No palpable masses or organomegaly. No peritoneal signs. No abdominal wall swelling or ecchymosis. EXTREMITIES: No extremity tenderness. Normal muscle tone and function. No thoracolumbar tenderness. NEUROLOGIC: Sensation is grossly intact. Cranial nerve exam reveals face is symmetrical, tongue is midline, speech is clear. SKIN: No abrasions or ecchymosis is noted. No induration or masses noted. PSYCHIATRIC: Alert and oriented. Appropriate behavior and judgment. Limitations: no limitations Course Vital Signs 10/30/16 19:20 Temperature 97.8 F Pulse Rate 89 Respiratory 18 Rate Blood Pressure 146/78 O2 Sat by Pulse 97 Oximetry Chest Pain MDM - MDM The patient was seen and examined. All diagnostics were reviewed. An EKG was done which was a normal sinus rhythm at a rate of 82. There is no acute ST-T wave changes identified. The AK interval is 124, QRS duration is 94, and the QTc interval is 441. He is given an aspirin but nitroglycerin is held due to his ALLERGIES. The chest x-ray did not show any acute processes. The laboratory is unremarkable. The possibility of acute coronary syndrome certainly is possible and it is felt as though he benefit from admission to the hospital. The case is discussed with Dr. Holm and she is agreeable to admission with cardiology to consult. The patient states that he is ALLERGIC to nitroglycerin as he got very hypotensive upon previous admission 2 months ago with one sublingual nitroglycerin pill. Dr. Holm like us to try the nitroglycerin spray but the patient refuses any nitroglycerin at this time. He states that he is chest pain-free and feels improved. Disposition Clinical Impression: Chest pain, Hypertension, Unstable angina pectoris Disposition: ADMITTED IP TO THIS [facility] Condition: Fair Time of Disposition: 21:02 Decision Date: 10/30/16 Decision Time: 21:02
[2016-10-30 19:53] LABS: Basophils # (A) 0.1 k/uL (0-0.2); Basophils % (A) 1 %; CH 30.5; Eosinophils # (A) 0.1 k/uL (0-0.7); Eosinophils % (A) 2 %; HCT 43.7 % (39.0-53.0); HDW 2.06; HGB 14.4 gm/dL (13.0-17.5); Luc # (Auto) 0.21; Luc % (Auto) 3; Lymphocytes % (A) 26 %; MCH 29.6 pg (25.0-35.0); MCV 89.8 fL (80.0-100.0); Mean Platelet Volume 7.4; Monocytes # (A) 0.6 k/uL (0-1.0); Monocytes % (A) 8 %; Neutrophils # (A) 4.7 k/uL (1.3-7.7); Neutrophils % (A) 61 %; RBC 4.87 m/uL (4.30-5.90); RDW 15.4 % (11.5-15.5); WBC 7.7 k/uL (3.8-10.6); WBC (Perox) 7.64
[2016-10-30 20:01] LABS: ALT 30 U/L (21-72); AST 29 U/L (17-59); Alkaline Phosphatase 72 U/L (38-126); Anion Gap 9 mmol/L; Blood Urea Nitrogen 15 mg/dL (9-20); Calcium 9.5 mg/dL (8.4-10.2); Carbon Dioxide 28 mmol/L (22-30); Chloride 103 mmol/L (98-107); Glucose 122 mg/dL (74-99); Magnesium 1.9 mg/dL (1.6-2.3); Non-African American GFR(MDRD) >60 (>60 ml/min/1.73 sqM); Potassium 3.8 mmol/L (3.5-5.1); Sodium 140 mmol/L (137-145); Total Bilirubin 0.4 mg/dL (0.2-1.3); Total Protein 7.1 g/dL (6.3-8.2)
[2016-10-30 20:12] LABS: Partial Thromboplastin Time 26.1 sec (22.0-30.0); Prothrombin Time 10.5 sec (9.0-12.0)
[2016-10-30 20:14] LABS: Creatine Kinase 95 U/L (55-170)
[2016-10-30 20:26] LABS: Creatine Kinase MB 1.3 ng/mL (0.0-2.4); Troponin I <0.012 ng/mL (0.000-0.034)
--- NOTE | 2016-10-30 20:28 | XR ---
EXAMINATION TYPE: XR chest 2V DATE OF EXAM: 10/30/2016 COMPARISON: 08/26/2016 HISTORY: Chest pain TECHNIQUE: Frontal and lateral views of the chest are obtained. FINDINGS: Heart and mediastinum are normal. Lungs are clear. Diaphragm is normal. Bony thorax is int act. IMPRESSION: Normal chest. There is clearing of pneumonia at the lateral left lung base compared to o ld exam.
[2016-10-30] MEDS ORDERED: MORPHINE SULFATE 2 MG/ML SYRINGE IVP PRN (21:02)
[2016-10-30 22:16] VITALS: BMI 24.8
[2016-10-31 01:53] LABS: Creatine Kinase 83 U/L (55-170)
[2016-10-31 02:06] LABS: Troponin I <0.012 ng/mL (0.000-0.034)
[2016-10-31 07:33] LABS: Cholesterol 171 mg/dL (<200); HDL Cholesterol 71 mg/dL (40-60)
[2016-10-31 07:52] LABS: Creatine Kinase 75 U/L (55-170)
[2016-10-31 08:03] LABS: Creatine Kinase MB 0.8 ng/mL (0.0-2.4); Troponin I <0.012 ng/mL (0.000-0.034)
[2016-10-31 08:05] VITALS: BP 120/68; PULSE 60; RESP 16; TEMP 97.6
[2016-10-31] MEDS ORDERED: RIVAROXABAN 10 MG TAB PO SCH (09:00)
[2016-10-31] MEDS ORDERED: ASPIRIN 325 MG TAB PO SCH (09:00)
--- NOTE | 2016-10-31 09:39 | P.CRDCN ---
History of Present Illness Consult date: 10/31/16 Consult reason: chest pain History of present illness: 65-year-old gentleman with history of hip replacement and pulmonary embolism afterwards in July of this year comes to Hospital complaining of chest pain. He had a sharp precordial chest discomfort without definite radiation to neck, back it was unassociated with diaphoresis and unrelated to exertion. It was not pleuritic. Since being admitted he is doing well and is free of symptoms. An EKG showed sinus rhythm without acute ST-T wave changes. Rhythm strip show that he is in sinus rhythm. Patient is very active physically and this did not have any chest pain. He exercises regularly. His lipid profile is excellent. I'm going to obtain a 2-D echo on him discharge him home and obtain an outpatient stress test early next week. If necessary and will do further workup on him. Review of Systems Constitutional: Denies chills. Denies fever. Eyes: Denies blurred vision. Denies pain. Ears, nose, mouth and throat: Denies headache. Denies sore throat. Cardiovascular: has chest pain. Denies shortness of breath. Respiratory: Denies cough. Gastrointestinal: Denies abdominal pain. Denies diarrhea. Denies nausea. Denies vomiting. Musculoskeletal: Denies myalgias. Integumentary: Denies pruritus. Denies rash. Neurological: Denies numbness. Denies weakness. Psychiatric: Denies anxiety. Denies depression. Endocrine: Denies fatigue. Denies weight change. Genitourinary: Denies burning, hematuria, frequency of urination. Hematological: No anemia or excess bleeding. Past Medical History Past Medical History: Osteoarthritis (OA), Pneumonia, Pulmonary Embolus (PE) History of Any Multi-Drug Resistant Organisms: None Reported Past Surgical History: Adenoidectomy, Joint Replacement, Orthopedic Surgery, Tonsillectomy Additional Past Surgical History / Comment(s): left hip replacement july/2016, last colonoscopy was 2014 normal Past Anesthesia/Blood Transfusion Reactions: No Reported Reaction Past Psychological History: No Psychological Hx Reported Smoking Status: Never smoker Past Alcohol Use History: Occasional Past Drug Use History: None Reported - Past Family History Mother Family Medical History: Cancer Additional Family Medical History / Comment(s): at 82 from aneurysm in brain stem; colon cancer Father Family Medical History: Neurologic Disorder Additional Family Medical History / Comment(s): at 98 Brother(s) Family Medical History: No Reported History Daughter(s) Family Medical History: No Reported History Son(s) Family Medical History: No Reported History Medications and Allergies Home Medications Medication Instructions Recorded Confirmed Type Rivaroxaban [Xarelto] 20 mg PO QAM 10/30/16 10/30/16 History Allergies Allergy/AdvReac Type Severity Reaction Status Date / Time Sulfa (Sulfonamide Allergy Rash/Hives Verified 10/30/16 19:34 Antibiotics) nitroglycerin AdvReac Nausea Verified 10/30/16 19:34 Physical Exam Vitals: Vital Signs Temp Pulse Pulse Resp BP BP Pulse Ox 10/31/16 08:00 97.6 F 60 16 120/68 96 10/31/16 04:00 98.1 F 63 18 110/60 97 10/31/16 03:12 59 L 18 10/31/16 00:00 58 L 18 10/30/16 21:44 98 F 68 18 131/67 99 10/30/16 21:18 66 20 128/68 98 10/30/16 19:20 97.8 F 89 18 146/78 97 Intake and Output 10/30/16 10/31/16 10/31/16 22:59 06:59 14:59 Other: Voiding Method Toilet Weight 78.471 kg General: The patient is awake and alert, in no distress, and does not appear acutely ill. Skin: Skin is warm and dry and no rashes or lesions are noted. Eye: Pupils are equal, round and reactive to light, extra-ocular movements are intact; there is normal conjunctiva bilaterally. Ears, nose, mouth and throat: There are moist mucous membranes and no oral lesions. Neck: The neck is supple, there is no tenderness or JVD. Cardiovascular: There is a regular rate and rhythm. No murmur, rub or gallop is appreciated. Respiratory: Lungs are clear to auscultation, respirations are non-labored, breath sounds are equal. Gastrointestinal: Soft, non-distended, non-tender abdomen without masses or organomegaly noted. There is no rebound or guarding present. Bowel sounds are unremarkable. Back: There is no tenderness to palpation in the midline. There is no obvious deformity. Musculoskeletal: Normal ROM, no tenderness, There is no pedal edema. There is no calf tenderness or swelling. Extremities: No edema. Vascular: Femoral pulse is normal. Posterior tibial pulses are normal .Dorsalis pedis is palpable. Neurological: CN II-XII intact. There are no obvious motor or sensory deficits. Speech is normal. Psychiatric: Cooperative, appropriate mood & affect, normal judgment. Results 10/30/16 19:25 10/30/16 19:25 Cardiac Enzymes 10/30/16 10/30/16 10/31/16 Range/Units 19:25 19:25 00:42 AST 29 (17-59) U/L CK-MB (CK-2) 1.3 1.0 (0.0-2.4) ng/mL Troponin I <0.012 <0.012 (0.000-0.034) ng/mL 10/31/16 Range/Units 06:19 AST (17-59) U/L CK-MB (CK-2) 0.8 (0.0-2.4) ng/mL Troponin I <0.012 (0.000-0.034) ng/mL Coagulation 10/30/16 Range/Units 19:25 PT 10.5 (9.0-12.0) sec APTT 26.1 (22.0-30.0) sec Lipids 10/31/16 Range/Units 06:19 Triglycerides 76 (<150) mg/dL Cholesterol 171 (<200) mg/dL HDL Cholesterol 71 H (40-60) mg/dL CBC 10/30/16 Range/Units 19:25 WBC 7.7 (3.8-10.6) k/uL RBC 4.87 (4.30-5.90) m/uL Hgb 14.4 (13.0-17.5) gm/dL Hct 43.7 (39.0-53.0) % Plt Count 233 (150-450) k/uL Comprehensive Metabolic Panel 10/30/16 Range/Units 19:25 Sodium 140 (137-145) mmol/L Potassium 3.8 (3.5-5.1) mmol/L Chloride 103 (98-107) mmol/L Carbon Dioxide 28 (22-30) mmol/L BUN 15 (9-20) mg/dL Creatinine 0.98 (0.66-1.25) mg/dL Glucose 122 H (74-99) mg/dL Calcium 9.5 (8.4-10.2) mg/dL AST 29 (17-59) U/L ALT 30 (21-72) U/L Alkaline Phosphatase 72 (38-126) U/L Total Protein 7.1 (6.3-8.2) g/dL Albumin 4.2 (3.5-5.0) g/dL Current Medications Generic Name Dose Route Start Last Admin Trade Name Freq PRN Reason Stop Dose Admin Aspirin 325 mg 10/31/16 09:00 Aspirin PO DAILY GELY Morphine Sulfate 2 mg 10/30/16 21:02 Morphine Sulfate (Inj) IVP Q5M PRN Chest Pain Rivaroxaban 20 mg 10/31/16 09:00 10/31/16 09:21 Xarelto PO 20 mg QAM GELY Administration Intake and Output 10/30/16 10/31/16 10/31/16 22:59 06:59 14:59 Other: Voiding Method Toilet Weight 78.471 kg 10/30/16 19:25 10/30/16 19:25 EKG Interpretations (text) Normal sinus rhythm normal axis normal intervals Assessment and Plan Plan: Pericardial chest pain History of pulmonary embolism Patient chest discomfort is atypical and probably noncardiac. I'm going to obtain an outpatient stress test. Patient is stable to be discharged home.
--- NOTE | 2016-10-31 12:05 | ECHOF ---
Referral Reason: MEASUREMENTS -------- HEIGHT: 152.4 cm WEIGHT: 78.5 kg BP: 110/60 RVIDd: 3.1 cm (< 3.3) IVSd: 0.8 cm (0.6 - 1.1) LVIDd: 4.6 cm (3.9 - 5.3) LVPWd: 0.9 cm (0.6 - 1.1) IVSs: 1.0 cm LVIDs: 3.4 cm LVPWs: 1.1 cm LA Diam: 3.1 cm (2.7 - 3.8) LAESV Index (A-L): 23.02 ml/m Ao Diam: 3.2 cm (2.0 - 3.7) AV Cusp: 1.8 cm (1.5 - 2.6) LA Diam: 3.1 cm (2.7 - 3.8) MV EXCURSION: 17.701 mm (> 18.000) MV EF SLOPE: 65 mm/s (70 - 150) EPSS: 0.3 cm MV E Yamil: 0.75 m/s MV DecT: 272 ms MV A Yamil: 0.70 m/s MV E/A Ratio: 1.07 RAP: 5.00 mmHg RVSP: 26.03 mmHg FINDINGS -------- Sinus rhythm. This was a technically good study. LV size, wall thickness and systolic function are normal, with an EF greater than 55%. The right ventricle is normal in size. Normal LA size by volume 22+/-6 ml/m2. The right atrial size is normal. The aortic valve is trileaflet, and appears structurally normal. No aortic stenosis or regurgitation. Mild mitral regurgitation is present. Mild tricuspid regurgitation present. There is no evidence of pulmonary hypertension. The right ventricular systolic pressure, as measured by Doppler, is 26.03mmHg. Trace/mild (physiologic) pulmonic regurgitation. The aortic root size is normal. There is no pericardial effusion. CONCLUSIONS -------- 1. LV size, wall thickness and systolic function are normal, with an EF greater than 55%. 2. Mild mitral regurgitation is present. 3. Mild tricuspid regurgitation present. 4. There is no evidence of pulmonary hypertension. 5. The right ventricular systolic pressure, as measured by Doppler, is 26.03mmHg. 6. Trace/mild (physiologic) pulmonic regurgitation. 7. The aortic root size is normal. 8. There is no pericardial effusion. MED ASST: Ryann Beavers RDCS
--- NOTE | 2016-10-31 17:27 | P.HPIM ---
History of Present Illness H&P Date: 10/31/16 Chief Complaint: Epigastric pain This is a 65-year-old male one of Dr. Diaz with a previous medical history significant for osteoarthritis for which she underwent a left total hip arthroplasty that was done via the anterior approach by Dr. Marc Clarke at [facility] and that was in 07/28/2016, that went an eventful, patient was do had a computed tomography scan of the chest that showed bilateral subsegmental pulmonary emboli requiring 6 months of Xarelto which she will complete until January 2017. He presented to the emergency room secondary to chest pain however on accurate symptom review disease epigastric pain and left mid abdominal pain. Patient does not have any chest pain at all, patient was evaluated for the chest pain pathway, and was seen in consultation by cardiology. Troponins negative 3 during his short stay here, abdominal pain has improved, patient denies any melena and hematochezia, no cough no fever no chills. No dyspnea and exertion. Patient denies any history of pancreatitis in the past, lipase will be added on this morning's blood draw currently pending Review of Systems Constitutional: Reports as per HPI, Denies anorexia, Denies chills, Denies chronic headaches, Denies chronic pain, Denies daytime sleepiness, Denies fatigue, Denies fever, Denies lethargy, Denies malaise, Denies night sweats, Denies poor appetite, Denies sweats, Denies weakness, Denies weight gain, Denies weight loss Ears, nose, mouth and throat: Reports as per HPI, Denies ant. neck pain, Denies bleeding gums, Denies dental pain, Denies dysphagia, Denies epistaxis, Denies headache, Denies hoarseness, Denies mouth pain, Denies nasal congestion, Denies nasal discharge, Denies neck fullness/pressure, Denies neck lump, Denies nose pain, Denies odynophagia, Denies post-nasal drip, Denies sinus pain, Denies sinus pressure, Denies swelling in mouth, Denies swelling in throat, Denies sore throat, Denies vertigo, Denies voice changes Cardiovascular: Reports as per HPI, Denies chest pain, Denies claudication, Denies decreased exercise tolerance, Denies dyspnea on exertion, Denies edema, Denies high blood pressure, Denies irregular heart beat, Denies leg edema, Denies lightheadedness, Denies orthopnea, Denies palpitations, Denies paroxysmal nocturnal dyspnea, Denies phlebitis, Denies rapid heart beat, Denies shortness of breath, Denies syncope Respiratory: Reports as per HPI Gastrointestinal: Reports abdominal pain, Denies as per HPI, Denies belching, Denies bloating, Denies BRBPR, Denies change in bowel habits, Denies coffee ground emesis, Denies constipation, Denies diarrhea, Denies dyspepsia, Denies early satiety, Denies excessive gas, Denies heartburn, Denies hematemesis, Denies hematochezia, Denies indigestion, Denies jaundice, Denies lactose intolerance, Denies loss of appetite, Denies melena, Denies nausea, Denies vomiting Genitourinary: Reports as per HPI, Denies discharge, Denies dysuria, Denies flank pain, Denies genital pain, Denies genital sores, Denies hematuria, Denies impotence, Denies incontinence, Denies kidney stones, Denies nocturia, Denies polyuria, Denies testicular lump, Denies testicular pain, Denies urinary frequency, Denies urinary hesitancy, Denies urinary retention Musculoskeletal: Reports as per HPI, Denies arm numbness/tingling, Denies atrophy, Denies fractures, Denies frequent falls, Denies gait dysfunction, Denies hot joints, Denies leg numbness/tingling, Denies limitation of motion, Denies loss of height, Denies low back pain, Denies morning stiffness, Denies muscle cramps, Denies muscle weakness, Denies myalgias, Denies neck pain, Denies neck stiffness, Denies prior amputations, Denies redness of joints, Denies shooting arm pain, Denies shooting leg pain Integumentary: Reports as per HPI, Denies acne, Denies boils, Denies brittle nails, Denies change in hair/nails, Denies color changes, Denies darkening of skin, Denies depigmentation, Denies dryness, Denies foot/leg ulcers, Denies growths, Denies hirsutism, Denies lesions, Denies onychomycosis, Denies pruritus , Denies rash, Denies sores, Denies striae, Denies unusual bruising, Denies wounds Neurological: Reports as per HPI, Denies aphasia, Denies ataxia, Denies balance difficulties, Denies burning pain, Denies change in mentation, Denies change in smell/taste, Denies change in speech, Denies confusion, Denies convulsions, Denies double vision, Denies gait dysfunction, Denies head injury, Denies headaches, Denies hearing difficulties, Denies lack of coordination, Denies loss of vision, Denies memory loss, Denies migraines, Denies motor disturbance, Denies numbness, Denies paralysis, Denies paresthesias, Denies seizures, Denies sensory deficit, Denies spasticity, Denies syncope, Denies tic, Denies tingling , Denies transient paralysis, Denies tremors, Denies vertigo, Denies weakness, Denies visual changes Psychiatric: Reports as per HPI, Denies anhedonia, Denies anxiety, Denies anxiety attacks, Denies change in appetite, Denies change in libido, Denies change in sleep habits, Denies confusion, Denies depression, Denies difficulty concentrating, Denies disorientation, Denies hallucinations, Denies hopelessness , Denies hypersomnia, Denies insomnia, Denies irritability, Denies memory loss, Denies mood swings, Denies paranoia, Denies sadness/tearfulness, Denies sleep disturbances, Denies suicidal ideation Endocrine: Reports as per HPI, Denies cold intolerance, Denies deepening of the voice, Denies excessive sweating, Denies excessive thirst, Denies fatigue, Denies flushing, Denies heat intolerance, Denies high blood sugars, Denies increase in ring/shoe/hat size, Denies low blood sugars, Denies nocturia, Denies palpitations, Denies polydipsia, Denies polyphagia, Denies polyuria, Denies proptosis, Denies recent glucocorticoid use, Denies thyroid mass, Denies weight change Past Medical History Past Medical History: Osteoarthritis (OA), Pneumonia, Pulmonary Embolus (PE) History of Any Multi-Drug Resistant Organisms: None Reported Past Surgical History: Adenoidectomy, Joint Replacement, Orthopedic Surgery, Tonsillectomy Additional Past Surgical History / Comment(s): left hip replacement july/2016, last colonoscopy was 2014 normal Past Anesthesia/Blood Transfusion Reactions: No Reported Reaction Past Psychological History: No Psychological Hx Reported Smoking Status: Never smoker Past Alcohol Use History: Occasional Past Drug Use History: None Reported - Past Family History Mother Family Medical History: Cancer Additional Family Medical History / Comment(s): at 82 from aneurysm in brain stem; colon cancer Father Family Medical History: Neurologic Disorder Additional Family Medical History / Comment(s): at 98 Brother(s) Family Medical History: No Reported History Daughter(s) Family Medical History: No Reported History Son(s) Family Medical History: No Reported History Medications and Allergies Home Medications Medication Instructions Recorded Confirmed Type Rivaroxaban [Xarelto] 20 mg PO QAM 10/30/16 10/30/16 History Omeprazole 20 mg PO DAILY #30 cap 10/31/16 Rx Allergies Allergy/AdvReac Type Severity Reaction Status Date / Time Sulfa (Sulfonamide Allergy Rash/Hives Verified 10/30/16 19:34 Antibiotics) nitroglycerin AdvReac Nausea Verified 10/30/16 19:34 Physical Exam Vitals: Vital Signs Temp Pulse Pulse Resp BP BP Pulse Ox 10/31/16 08:00 97.6 F 60 16 120/68 96 10/31/16 04:00 98.1 F 63 18 110/60 97 10/31/16 03:12 59 L 18 10/31/16 00:00 58 L 18 10/30/16 21:44 98 F 68 18 131/67 99 10/30/16 21:18 66 20 128/68 98 10/30/16 19:20 97.8 F 89 18 146/78 97 Intake and Output 10/30/16 10/31/16 10/31/16 22:59 06:59 14:59 Other: Voiding Method Toilet Weight 78.471 kg - Constitutional General appearance: cooperative, no acute distress - EENT Eyes: anicteric sclerae, EOMI, PERRLA, dentition normal, normal appearance ENT: hearing grossly normal, NA/AT, normal oropharynx - Neck Neck: no lymphadenopathy, normal ROM, no other, no rigidity, no stridor, no thyromegaly - Respiratory Respiratory: bilateral: CTA, negative: diminished, dullness, rales, rhonchi - Cardiovascular Rhythm: regular Heart sounds: normal: S1, S2 Abnormal Heart Sounds: no systolic murmur, no diastolic murmur, no rub, no S3 Gallop, no S4 Gallop, no click, no other - Gastrointestinal General gastrointestinal: normal bowel sounds, soft, tenderness (None) - Integumentary Integumentary: normal, normal turgor - Neurologic Neurologic: CNII-XII intact - Musculoskeletal Musculoskeletal: gait normal, strength equal bilaterally - Psychiatric Psychiatric: A&O x's 3, appropriate affect, intact judgment & insight Results CBC & Chem 7: 10/30/16 19:25 10/30/16 19:25 Labs: Abnormal Lab Results - Last 24 Hours (Table) 10/30/16 10/31/16 Range/Units 19:25 06: Glucose 122 H (74-99) mg/dL HDL Cholesterol 71 H (40-60) mg/dL Laboratory Results WBC 7.7 k/uL (3.8-10.6) 10/30/16 19:25 RBC 4.87 m/uL (4.30-5.90) 10/30/16 19:25 Hgb 14.4 gm/dL (13.0-17.5) 10/30/16 19:25 Hct 43.7 % (39.0-53.0) 10/30/16 19:25 MCV 89.8 fL (80.0-100.0) 10/30/16 19:25 MCH 29.6 pg (25.0-35.0) 10/30/16 19:25 MCHC 33.0 g/dL (31.0-37.0) 10/30/16 19:25 RDW 15.4 % (11.5-15.5) 10/30/16 19:25 Plt Count 233 k/uL (150-450) 10/30/16 19:25 Neutrophils % 61 % 10/30/16 19:25 Lymphocytes % 26 % 10/30/16 19:25 Monocytes % 8 % 10/30/16 19:25 Eosinophils % 2 % 10/30/16 19:25 Basophils % 1 % 10/30/16 19:25 Neutrophils # 4.7 k/uL (1.3-7.7) 10/30/16 19:25 Lymphocytes # 2.0 k/uL (1.0-4.8) 10/30/16 19:25 Monocytes # 0.6 k/uL (0-1.0) 10/30/16 19:25 Eosinophils # 0.1 k/uL (0-0.7) 10/30/16 19:25 Basophils # 0.1 k/uL (0-0.2) 10/30/16 19:25 PT 10.5 sec (9.0-12.0) 10/30/16 19:25 INR 1.0 (<1.2) 10/30/16 19:25 APTT 26.1 sec (22.0-30.0) 10/30/16 19:25 Sodium 140 mmol/L (137-145) 10/30/16 19:25 Potassium 3.8 mmol/L (3.5-5.1) 10/30/16 19:25 Chloride 103 mmol/L (98-107) 10/30/16 19:25 Carbon Dioxide 28 mmol/L (22-30) 10/30/16 19:25 Anion Gap 9 mmol/L 10/30/16 19:25 BUN 15 mg/dL (9-20) 10/30/16 19:25 Creatinine 0.98 mg/dL (0.66-1.25) 10/30/16 19:25 Est GFR (MDRD) Af Amer >60 (>60 ml/min/1.73 sqM) 10/30/16 19:25 Est GFR (MDRD) Non-Af >60 (>60 ml/min/1.73 sqM) 10/30/16 19:25 Glucose 122 mg/dL (74-99) H 10/30/16 19:25 Calcium 9.5 mg/dL (8.4-10.2) 10/30/16 19:25 Magnesium 1.9 mg/dL (1.6-2.3) 10/30/16 19:25 Total Bilirubin 0.4 mg/dL (0.2-1.3) 10/30/16 19:25 AST 29 U/L (17-59) 10/30/16 19:25 ALT 30 U/L (21-72) 10/30/16 19:25 Alkaline Phosphatase 72 U/L (38-126) 10/30/16 19:25 Total Creatine Kinase 75 U/L (55-170) 10/31/16 06:19 CK-MB (CK-2) 0.8 ng/mL (0.0-2.4) 10/31/16 06:19 CK-MB (CK-2) Rel Index 1.1 10/31/16 06:19 Troponin I <0.012 ng/mL (0.000-0.034) 10/31/16 06:19 Total Protein 7.1 g/dL (6.3-8.2) 10/30/16 19:25 Albumin 4.2 g/dL (3.5-5.0) 10/30/16 19:25 Triglycerides 76 mg/dL (<150) 10/31/16 06:19 Cholesterol 171 mg/dL (<200) 10/31/16 06:19 LDL Cholesterol, Calc 85 mg/dL (0-99) 10/31/16 06:19 HDL Cholesterol 71 mg/dL (40-60) H 10/31/16 06:19 Lipase 54 U/L (23-300) 10/31/16 06:19 Thrombosis Risk Factor Assmnt - Choose All That Apply Each Risk Factor Represents 2 Points: Age 61-74 years Each Risk Factor Represents 3 Points: History of DVT/PE Thrombosis Risk Factor Assessment Total Risk Factor Score: 5 Thrombosis Risk Factor Assessment Level: High Risk Assessment and Plan Plan: 1. Abdominal pain epigastric and left mid abdomen, patient came into observation through the chest pain pathway, and lipase normal,, patient was seen by cardiology. Troponins 3 are negative, chest x-ray unremarkable, EKG is normal without any ST-T wave changes echocardiogram was done that shows EF 55%, no pulmonary hypertension, no aortic stenosis, no pericardial effusion, mild MR and mild TR and mild GA patient was cleared by cardiology for discharge with outpatient stress test next week. Symptoms have abated prior to discharge, omeprazole started especially with pre- existing factor X A anticoagulation patient was cautioned about not taking any NSAIDs and limit alcohol intake, to treat early gastritis. 2 Bilateral subsegmental pulmonary emboli provoked by recent left total hip arthroplasty via anterior approach diagnosed July 2016 to complete his months. Continue Xarelto 50 mg orally twice every day for the next 21 days then 20 mg orally once every day for the next 6 months, till January 2017 3. Osteoarthritis status post left total hip arthroplasty. Asymptomatic not requiring any pain medication at home including NSAIDs or opiates
== END 2016-10-31 13:38 | disposition home or self-care (01) ==
LOC: EC 19:10 → 3OBS 21:02
PROVIDERS: ADMIT Family Medicine; ATTEND Family Medicine
DX: R07.89 Other chest pain (principal); R07.2 Precordial pain; R10.13 Epigastric pain; Z86.711 Personal history of pulmonary embolism; Z79.01 Long term (current) use of anticoagulants; Z88.2 Allergy status to sulfonamides; Z88.8 Allergy status to other drugs, medicaments and biological substances; M19.90 Unspecified osteoarthritis, unspecified site; Z96.642 Presence of left artificial hip joint; Z80.0 Family history of malignant neoplasm of digestive organs
CPT/HCPCS: 99285; 36415; 93005; 93306; 80061; 80053; 82550 ×2; 82553 ×2; 83690; 83735; 84484 ×2; 85025; 85610; 85730; 71020; G0378 ×2

== ENCOUNTER 2021-01-07 07:50 | Day surgery (SDC) | payer MEDICARE ==
[2021-01-03 13:45] VITALS: BMI 24.3
[~2021-01-07 07:50] MED LIST: LACTATED RINGERS 1,000 ML IV SCH; LIDOCAINE 1% (10MG/ML) FOR IV START INTRADERMA PRN
[2021-01-07 08:25] VITALS: TEMP 97.5
[2021-01-07] MEDS ORDERED: LIDOCAINE 1% INJ 10MG/ML (20 ML MDV) ONE (08:48)
[2021-01-07] MEDS ORDERED: PROPOFOL 10 MG/ML 20 ML VIAL IV ONE (08:48)
--- NOTE | 2021-01-07 08:52 | P.GSHP ---
History of Present Illness H&P Date: 01/07/21 Chief Complaint: Colon cancer screening 70-year-old male here today for colonoscopy. Family history of colon cancer in his mother. Last colonoscopy 5-6 years ago. No history of polyps. Past Medical History Past Medical History: Osteoarthritis (OA), Pneumonia, Pulmonary Embolus (PE) Additional Past Medical History / Comment(s): 2016 Pulmonary Embolus. History of Any Multi-Drug Resistant Organisms: None Reported Past Surgical History: Adenoidectomy, Joint Replacement, Orthopedic Surgery, Tonsillectomy Additional Past Surgical History / Comment(s): left hip replacement july/2016, last colonoscopy was 2014 normal, cataract surgery, cornea transplant both eyes. Past Anesthesia/Blood Transfusion Reactions: No Reported Reaction Smoking Status: Never smoker - Past Family History Mother Family Medical History: Cancer Additional Family Medical History / Comment(s): at 82 from aneurysm in brain stem; colon cancer Father Family Medical History: Neurologic Disorder Additional Family Medical History / Comment(s): at 98 Brother(s) Family Medical History: No Reported History Daughter(s) Family Medical History: No Reported History Son(s) Family Medical History: No Reported History Medications and Allergies Home Medications Medication Instructions Recorded Confirmed Type prednisoLONE ACETATE 1% OPHTH 1 drops BOTH EYES DAILY 01/03/21 01/03/21 History [Pred Forte 1%] Allergies Allergy/AdvReac Type Severity Reaction Status Date / Time Sulfa (Sulfonamide Allergy Rash/Hives Verified 01/07/21 08:16 Antibiotics) nitroglycerin AdvReac Nausea Verified 01/07/21 08:16 Surgical - Exam Vital Signs Temp Pulse Resp BP Pulse Ox 97.5 F L 72 15 152/81 100 01/07/21 08:22 01/07/21 08:22 01/07/21 08:22 01/07/21 08:22 01/07/21 08:22 Physical exam: General: Well-developed, well-nourished HEENT: Normocephalic, sclerae nonicteric Abdomen: Nontender, nondistended Extremities: No edema Neuro: Alert and oriented Assessment and Plan (1) Colon cancer screening Narrative/Plan: Will proceed with colonoscopy at this time Current Visit: Yes Status: Acute Code(s): Z12.11 - ENCOUNTER FOR SCREENING FOR MALIGNANT NEOPLASM OF COLON SNOMED Code(s): 638069321
--- NOTE | 2021-01-07 09:08 | P.PCN ---
Date of Procedure: 01/07/21 Procedure(s) Performed: PREOPERATIVE DIAGNOSIS: Family history of colon cancer, screening POSTOPERATIVE DIAGNOSIS: Cecal polyp diverticulosis PROCEDURE: Colonoscopy with snare polypectomy ANESTHESIA: MAC SURGEON: Chidi Castaneda M.D. SPECIMENS: Cecal Polyp ENDOSCOPIC PROCEDURE: The patient was placed on the endoscopy table in the left decubitus position. The Olympus colonoscope was inserted into the anus and passed under direct visualization to the base of the cecum. The appendiceal orifice was visualized. From that point the scope was slowly withdrawn inspecting all surfaces carefully. There was a small polyp at the base of the cecum that was removed using the snare with cautery technique. The remainder of the ascending, transverse, descending, sigmoid and rectum appeared normal. There was mild left-sided diverticulosis noted. Digital rectal examination was normal. The patient was taken to the recovery room in stable condition per anesthesia guidelines. RECOMMENDATIONS: Resume diet. Await biopsy results. Follow-up colonoscopy 5 years.
[2021-01-07 09:50] VITALS: BP 115/78; PULSE 78; RESP 18
== END 2021-01-07 09:51 | disposition home or self-care (01) ==
LOC: ORWHC2ENDO 07:50
PROVIDERS: ATTEND Surgery
DX: Z12.11 Encounter for screening for malignant neoplasm of colon (principal); D12.0 Benign neoplasm of cecum; M19.90 Unspecified osteoarthritis, unspecified site; Z80.0 Family history of malignant neoplasm of digestive organs; Z86.711 Personal history of pulmonary embolism; Z88.2 Allergy status to sulfonamides
CPT/HCPCS: 45385; 88305; J2001; J2704